=== PATIENT | male | born 1960 | race Caucasian/White ===

== ENCOUNTER 2018-02-02 06:58 | Day surgery (SDC) | payer OTHER ==
[2018-02-01 15:41] VITALS: BMI 27.3
[2018-02-02 08:12] LABS: INR 1.31 (0.82-1.09); PROTHROMBIN TIME (PATIENT) 14.8 SEC (9.7-13.0)
[2018-02-02 13:35] VITALS: TEMP 98.1
[2018-02-02 16:47] VITALS: BP 125/77; PULSE 89
--- NOTE | 2018-02-04 14:36 | PATH ---
Surgical Pathology Report Patient Name: BAILEY FLORES [facility]. Rec. #: [id number] /Age/Gender: 1960 (Age: 57) / M Account: [id number] Location: Taken: 02/02/2018 Received: 02/02/2018 Reported: 02/04/2018 Physicians: Escobar Ny M.D. Porter Cam M.D. Specimen(s) Received LEFT LUNG BIOPSY Clinical History 57-year-old male with large left lower PET+ mass, no history of smoking Final Diagnosis LEFT LUNG, BIOPSY: INVASIVE ADENOCARCINOMA, MODERATELY DIFFERENTIATED. Comment: Immunohistochemistry stains show the tumor cells are positive for CK-7, TTF-1 (rare, focal), negative for NAPSIN A, P40, CK-20, CDX-2. Although this immunoprofile is compatible with lung primary adenocarcinoma, it is non-specific. Clinical correlation is recommended. Immunohistochemistry stains were performed at [place], [place] ([id number]) and interpreted at [facility] Positive and negative controls (internal if applicable) show appropriate results. Intradepartmental case reviewed with consensus on diagnosis. This case was discussed with Dr. Cam on February 03, 2018. Electronically Signed Ligia Aguilar M.D. Gross Description Received in formalin labeled "left lung biopsy," is a 0.5 x 0.5 x 0.1 cm aggregate of lopez soft tissue fragments. The formalin is filtered and the specimen is entirely submitted in one cassette. 02/02/2018 saudi02/02/2018
== END 2018-02-02 15:30 | disposition home or self-care (01) ==
LOC: JRADIR 06:58
PROVIDERS: ATTEND Specialist
PROC: 0BBJ3ZX Excision of Left Lower Lung Lobe, Percutaneous Approach, Diagnostic (ICD-10-PCS; principal; 2018-02-02)
DX: C34.32 Malignant neoplasm of lower lobe, left bronchus or lung (principal)
CPT/HCPCS: 32405; 36415; 71045-TC-FY; 76098-TC-FY; 77012-TC; 85610; 87899; 88305-TC